=== PATIENT | male | born 1955 | race Caucasian/White ===

== ENCOUNTER 2019-01-22 05:57 | Day surgery (SDC) | payer MEDICARE, OTHER ==
[~2019-01-22] VITALS: Ht 162.6 cm; Wt 61.8 kg
[~2019-01-22 05:57] MED LIST: AMLO10TA7 PO; BENA20TA11 PO; CLOP75TA3 PO; HYDR25TA PO; SODIUM CHLORIDE 0.9% 1,000 ML IV ONE
[2019-01-22] MEDS ORDERED: BENZOCAINE 20% 50 MCG/SPRAY 57 GM TP ONE (05:58)
[2019-01-22] MEDS ORDERED: LIDOCAINE 2% 30 ML JELLY TP ONE (05:58)
[2019-01-22] MEDS ORDERED: ALBUTEROL SULFATE 2.5 MG/0.5 ML NEB SOLUTION NEB ONE (05:58)
[2019-01-22] MEDS ORDERED: LIDOCAINE 4% 50 ML SOLUTION TP ONE (05:58)
[2019-01-22] MEDS ORDERED: SODIUM CHLORIDE 0.9% 1,000 ML IV ONE (06:30)
[2019-01-22] MEDS ORDERED: BUDE10.2 IH (07:02)
[2019-01-22] MEDS ORDERED: FAMO20 PO (07:02)
[2019-01-22] MEDS ORDERED: CALC667C PO (07:02)
[2019-01-22] MEDS ORDERED: ATOR40TA71 PO (07:02)
[2019-01-22] MEDS ORDERED: IPRA4AER IH (07:03)
[2019-01-22] MEDS ORDERED: FentaNYL CITRATE-PF 100 MCG/2 ML VIAL ONE (08:09)
[2019-01-22] MEDS ORDERED: MIDAZOLAM HCL 2 MG/2 ML VIAL ONE (08:09)
[2019-01-22] MEDS ORDERED: MethylPREDNISolone SOD SUCC 125 MG/2 ML VIAL IVP ONE (09:00)
[2019-01-22] MEDS ORDERED: MethylPREDNISolone SOD SUCC 125 MG/2 ML VIAL ONE (09:15)
[2019-01-22] MEDS ORDERED: OXYGEN THERAPY IH SCH (20:00)
== END 2019-01-22 10:30 | disposition home or self-care (01) ==
LOC: SURGERY 05:57
PROVIDERS: ATTEND Internal Medicine Critical Care Medicine
DX: R05 Cough (principal); J34.89 Other specified disorders of nose and nasal sinuses; J98.8 Other specified respiratory disorders; B37.0 Candidal stomatitis; J38.4 Edema of larynx; J44.9 Chronic obstructive pulmonary disease, unspecified; M10.9 Gout, unspecified; Z79.899 Other long term (current) drug therapy
CPT/HCPCS: 31623; 31624; 71045; 87015; 87070; 87101; 87205; 87206; 87220; 88108; 88312; 93005; J2250; J2930; J3010; J7030